=== PATIENT | female | born 1955 | race Caucasian/White ===

== ENCOUNTER 2017-02-07 21:45 | Emergency (ER) | payer OTHER ==
[2017-02-07 22:06] VITALS: BMI 37.3
[2017-02-07] MEDS ORDERED: KETOROLAC TROMETHAMINE 60 MG/2 ML VIAL IM ONE (22:38)
[2017-02-07] MEDS ORDERED: KETOROLAC TROMETHAMINE 60 MG/2 ML VIAL ONE (22:40)
--- NOTE | 2017-02-07 23:32 | PDOC ---
History of Present Illness - General Chief Complaint: Pain Stated Complaint: SORE THROAT Time Seen by Provider: 02/07/17 22:17 - History of Present Illness Initial Comments: 02/07/17 23:26 61 yo F with h/o HTN, and recent colonoscopy who presents with sore throat. Daughter at bedside to assist in report. She states that mother recently underwent colonoscopy 2 days prior to ED arrival and her top row of dentures came out and were embedded in patient throat. Denies intubation or endoscopy. She states that patient has since then had pain in back of throat, hoarseness of voice, and pain with swallowing. She denies fevers, chills, cough, SOB, GERMAIN, N /V, abdominal complaints, or urinary symptoms. Denies OTC analgesia. Pt. maintains adequate oral hydration. Past History - Past Medical History Allergies/Adverse Reactions: Allergies Allergy/AdvReac Type Severity Reaction Status Date / Time No Known Allergies Allergy Verified 02/07/17 22:03 HTN: Yes Hypercholesterolemia: Yes - Surgical History Appendectomy: Yes - Psycho/Social/Smoking Cessation Hx Suicidal Ideation: No Smoking History: Never smoked Information on smoking cessation initiated: No Hx Alcohol Use: No Drug/Substance Use Hx: No Substance Use Type: None Review of Systems - Review of Systems Comments:: 02/08/17 06:07 GENERAL/CONSTITUTIONAL: No fever or chills. No weakness. HEAD, EYES, EARS, NOSE AND THROAT: + Sore throat. No change in vision. No ear pain or discharge. CARDIOVASCULAR: No chest pain or shortness of breath RESPIRATORY: No cough, wheezing, or hemoptysis. GASTROINTESTINAL: No nausea, vomiting, diarrhea or constipation. GENITOURINARY: No dysuria, frequency, or change in urination. MUSCULOSKELETAL: No joint or muscle swelling or pain. No neck or back pain. SKIN: No rash NEUROLOGIC: No headache, vertigo, loss of consciousness, or change in strength/ sensation. ENDOCRINE: No increased thirst. No abnormal weight change HEMATOLOGIC/LYMPHATIC: No anemia, easy bleeding, or history of blood clots. ALLERGIC/IMMUNOLOGIC: No hives or skin allergy. *Physical Exam - Vital Signs Last Vital Signs Temp Pulse Resp BP Pulse Ox 98.0 F 81 20 153/70 98 02/07/17 22:03 02/07/17 22:03 02/07/17 22:03 02/07/17 22:03 02/07/17 22:03 - Physical Exam Comments: 02/08/17 06:07 GENERAL: Awake, alert, and fully oriented, in no acute distress HEAD: No signs of trauma, normocephalic, atraumatic EYES: PERRLA, EOMI, sclera anicteric, conjunctiva clear ENT: Anterior neck TTP. + Diffuse ecchymosis in posterior oropharynx, with mild erythema. Absent neck swelling. Auricles normal inspection, hearing grossly normal, nares patent, Moist mucosa NECK: Normal ROM, supple, no lymphadenopathy, JVD, or masses LUNGS: No distress, speaks full sentences, clear to auscultation bilaterally HEART: Regular rate and rhythm, normal S1 and S2, no murmurs, rubs or gallops, peripheral pulses normal and equal bilaterally. ABDOMEN: Soft, nontender, normoactive bowel sounds. No guarding, no rebound. No masses EXTREMITIES: Normal inspection, Normal range of motion, no edema. No clubbing or cyanosis. NEUROLOGICAL: Cranial nerves II through XII grossly intact. Normal speech, normal gait, no focal sensorimotor deficits SKIN: Warm, Dry, normal turgor, no rashes or lesions noted. ED Treatment Course - Medications Given in the ED: ED Medications Discontinued Medications Generic Name Dose Route Start Last Admin Trade Name Freq PRN Reason Stop Dose Admin Ketorolac Tromethamine 60 mg 02/07/17 22:38 02/07/17 22:39 Toradol Injection - IM 02/07/17 22:39 60 mg ONCE ONE Administration Medical Decision Making - Medical Decision Making 02/08/17 06:09 61 yo F with h/o HTN, and recent colonoscopy who presents with sore throat. Daughter at bedside to assist in report. She states that mother recently underwent colonoscopy 2 days prior to ED arrival and her top row of dentures came out during procedure and were embedded in patient throat. Denies intubation or endoscopy. She states that patient has had pain in back of throat , hoarseness of voice, and odynophagia. She denies fevers, chills, cough, SOB, GERMAIN, N/V. Physical exam reveals anterior neck TTP. + Diffuse ecchymosis in posterior oropharynx, with mild erythema. Low suspicion for infection. Pt. is afebrile, nontoxic appearing, and denies infectious symptoms. DDx: phayrngeal irritation, viral pharyngitis, bacterial pharyngitis ED Course: Dexamethesone 10 mg IM Toradol 60 mg IM Rapid Strep Influenza A&B Soft Tissue Neck CT Pt. eloped *DC/Admit/Observation/Transfer Diagnosis at time of Disposition: Sore throat - Discharge Dispostion Admit: No - Patient Instructions Printed Discharge Instructions: Sore Throat, DI for Viral Pharyngitis Additional Instructions: Take over the counter Tylenol or Ibruprofen for pain control as needed. Continue to stay fluid hydrated with water. Return to the ED if you experience difficulty breathing, fever/chills, N/V, or worsening symptoms. Please call to follow up with your lab results in next 48 hours. Print Language: LITHUANIAN - Attestations Physician Attestion: 02/07/17 23:29 I, Dr. Martinez Waters, attest that this document has been prepared under my direction and personally reviewed by me in its entirety. I further attest, that it accurately reflects all work, treatment, procedures and medical decision -making performed by me.
--- NOTE | 2017-02-07 23:32 | PDOC ---
Attending Attestation - Resident Resident Name: Martinez Waters - HPI HPI: 02/07/17 23:31 Pt comes with sore throat; inflammation of the back of throat after her upper dentures dislodged during colonoscopy and injured the pharyngeal area. - Physicial Exam PE: 02/08/17 00:28 Hoarse voice; bruising on the posterior pharynx; greater on left side. Heart, lungs, rest of HEENT normal. Exam normal. Agree with resident exam - Medical Decision Making 02/08/17 00:28 CT neck: no airway obstruction; swollen vocal cords. Pt can follow with ENT.
[2017-02-07] MEDS ORDERED: DEXAMETHASONE SOD PHOSPHATE 10 MG/1 ML VIAL IM ONE (23:42)
[2017-02-07] MEDS ORDERED: DEXAMETHASONE SOD PHOSPHATE 10 MG/1 ML VIAL ONE (23:45)
[2017-02-08 00:46] VITALS: BP 135/80; PULSE 87; TEMP 98
== END 2017-02-08 00:34 | disposition home or self-care (01) ==
LOC: JER 21:45
PROC: 3E0233Z Introduction of Anti-inflammatory into Muscle, Percutaneous Approach (ICD-10-PCS; principal; 2017-02-07)
PROC: 3E023GC Introduction of Other Therapeutic Substance into Muscle, Percutaneous Approach (ICD-10-PCS; 2017-02-07)
DX: J02.9 Acute pharyngitis, unspecified (principal); I10 Essential (primary) hypertension; E78.00 Pure hypercholesterolemia, unspecified
CPT/HCPCS: 70490-TC; 87070; 87430; 87804; 99284-25

== ENCOUNTER 2025-02-15 11:08 | Observation (INO) | payer OTHER ==
[2025-02-15 11:24] VITALS: BMI 40.0
[2025-02-15 12:26] LABS: ABSOLUTE IMMATURE GRANULOCYTES 0.01 x10^3/uL (0.0-0.031); BASOPHILS # 0.02 x10^3/uL (0.01-0.08); EOSINOPHIL % 2.2 % (0.7-5.8); EOSINOPHILS # 0.10 x10^3/uL (0.04-0.36); MCHC 31.1 g/dl (32.2-35.5); MEAN CELL VOLUME 89.3 fl (79.4-94.8); MEAN PLT VOLUME 10.8 fl (9.4-12.3); MONOCYTE # 0.36 x10^3/uL (0.24-0.86); MONOCYTE % 7.8 % (4.7-12.5); RDW 15.7 % (12.4-16.6)
[2025-02-15 13:03] LABS: GLUCOSE,RANDOM 106.0 mg/dL (74-106); N-TERMINAL BNP 879.5 pg/mL (0-299.9); TOT PROT 7.2 g/dl (6.4-8.2)
[2025-02-15 13:04] LABS: CO2 23.0 mmol/L (21-32)
[2025-02-15 13:05] LABS: ALK PHOS 96.0 U/L (40-150)
[2025-02-15 13:08] LABS: CREATININE 0.76 mg/dL (0.55-1.3); SGOT/AST 28.0 U/L (5-34); SGPT/ALT 47.0 U/L (0-55)
[2025-02-15 13:13] LABS: HCV DIAGNOSTIC IN-HOUSE W/RFLX NON-REACTIVE (NONREACTIVE)
[2025-02-15 13:14] LABS: HIV INTERPRETATION NEGATIVE (NEGATIVE)
[2025-02-15] MEDS: FUROSEMIDE 40 MG/4 ML INJECTABLE VIAL IVPUSH ONE ×2 (16:41→18:22)
[2025-02-15] MEDS: APIXABAN 5 MG TABLET PO SCH (21:58)
[2025-02-15] MEDS: ATORVASTATIN CA 40 MG TABLET (FP) PO SCH (21:58)
[2025-02-16 08:44] LABS: ABSOLUTE IMMATURE GRANULOCYTES 0.01 x10^3/uL (0.0-0.031); BASOPHILS # 0.01 x10^3/uL (0.01-0.08); EOSINOPHIL % 2.4 % (0.7-5.8); EOSINOPHILS # 0.11 x10^3/uL (0.04-0.36); MCHC 31.0 g/dl (32.2-35.5); MEAN CELL VOLUME 88.6 fl (79.4-94.8); MEAN PLT VOLUME 11.1 fl (9.4-12.3); MONOCYTE # 0.36 x10^3/uL (0.24-0.86); MONOCYTE % 8.0 % (4.7-12.5); RDW 15.5 % (12.4-16.6)
[2025-02-16 09:24] LABS: GLUCOSE,RANDOM 138.0 mg/dL (74-106)
[2025-02-16 09:25] LABS: TOT PROT 7.0 g/dl (6.4-8.2)
[2025-02-16 09:26] LABS: CO2 29.0 mmol/L (21-32)
[2025-02-16 09:27] LABS: ALK PHOS 96.0 U/L (40-150)
[2025-02-16 09:30] LABS: SGOT/AST 23.0 U/L (5-34)
[2025-02-16 09:31] LABS: CREATININE 0.87 mg/dL (0.55-1.3)
[2025-02-16 09:34] LABS: SGPT/ALT 41.0 U/L (0-55)
[2025-02-16] MEDS ORDERED: amLODIPine BESYLATE 10 MG TABLET (FP) PO SCH (10:00)
[2025-02-16] MEDS ORDERED: PATIENT'S OWN MEDICATION (NON-FORMULARY) (Lisinopril/Hydrochlorothiazide [Lisinopril-Hctz PO SCH (10:00)
[2025-02-16] MEDS ORDERED: ENOXAPARIN NA (PORCINE) 40 MG/0.4 ML DISP.SYRIN SQ SCH (10:00)
[2025-02-16] MEDS: DONEPEZIL HCL 10 MG TABLET (FP) PO SCH (10:03)
[2025-02-16] MEDS: HYDROCHLOROTHIAZIDE 12.5 MG CAPSULE (FP) PO SCH (10:06)
[2025-02-16] MEDS: LISINOPRIL 20 MG TABLET PO SCH (10:08)
[2025-02-16 17:23] VITALS: BP 131/58; PULSE 66; RESP 18; TEMP 97.9
== END 2025-02-16 20:55 | disposition short-term general hospital (02) ==
LOC: JER 11:08 → UNDOADMOB 13:18 → JERBED 13:18 → INTOOBSV 13:18 → JERBED 14:31 → J6W TELE 17:41
PROVIDERS: ADMIT Internal Medicine; ATTEND Internal Medicine
DX: I48.91 Unspecified atrial fibrillation (principal); I50.32 Chronic diastolic (congestive) heart failure; I73.9 Peripheral vascular disease, unspecified; Z90.79 Acquired absence of other genital organ(s); Z90.49 Acquired absence of other specified parts of digestive tract
CPT/HCPCS: 36415; 71045-TC-FY; 80053; 83036; 83735; 83880; 84100; 84439; 84443; 84484; 85025; 86803; 87389; 93005; 93010; 93306-TC; 96374; 99285-25; G0378